=== PATIENT | male | born 1965 | race Caucasian/White ===

== ENCOUNTER 2023-02-18 12:11 | Outpatient (CLI) | payer OTHER | END 2023-02-18 12:26 | disposition home or self-care (01) | LOC: NUCLEAR 12:11 | PROVIDERS: ATTEND Internal Medicine Pulmonary Disease | DX: I27.82 Chronic pulmonary embolism (principal); I26.90 Septic pulmonary embolism without acute cor pulmonale | CPT/HCPCS: 78580; A9540 ==

== ENCOUNTER 2025-08-16 09:49 | Emergency (ER) | payer OTHER ==
[~2025-08-16] VITALS: Ht 162.6 cm; Wt 127.0 kg
[2025-08-16] MEDS ORDERED: DEPAKOTE ER500 MG PO (10:24)
[2025-08-16] MEDS ORDERED: KEPPRA500 MG PO (10:25)
[2025-08-16] MEDS ORDERED: LAMICTAL25 MG PO (10:25)
[2025-08-16] MEDS ORDERED: LOSARTAN-HCTZ1 EACH PO (10:26)
[2025-08-16 12:05] LABS: BASO % 0.1 % (0.1-1.2); EOS # 0.08 (0.04-0.54); EOS % 1.0 % (0.7-7.0); LYMPH # 1.28 (1.18-3.74); LYMPH % 16.7 % (19.3-53.1); MEAN PLATELET VOLUME 8.70 fl (9.4-12.4); MONO # 0.70 (0.24-0.82); MONO % 9.1 % (4.7-12.5); NEUT # 5.57 (1.56-6.13); NEUT % 72.7 % (34.0-71.1); RED CELL DISTRIBUTION WIDTH 12.8 % (11.6-14.4)
[2025-08-16 12:38] LABS: BUN CREA RATIO 8.0 (7.0-25.0); CREATININE SERUM 2.28 mg/dL (0.70-1.30); GFR 29.25; GLUCOSE FASTING 98.0 mg/dL (65-100); OSMOLALITY SERUM 274.0 MOSM/KG (275-295)
== END 2025-08-16 13:27 | disposition home or self-care (01) ==
LOC: ER 09:49
PROVIDERS: Emergency Medicine
DX: I16.0 Hypertensive urgency (principal); I10 Essential (primary) hypertension; Z88.5 Allergy status to narcotic agent; Z88.6 Allergy status to analgesic agent; Z91.041 Radiographic dye allergy status